=== PATIENT | female | born 1975 | race Caucasian/White ===

== ENCOUNTER 2017-03-28 11:02 | Observation (INO) | payer OTHER ==
[2017-03-26 15:27] LABS: HEMATOCRIT 39.3 % (36.0-48.0); HEMOGLOBIN 12.8 g/dL (12.0-16.0)
--- NOTE | ~2017-03-28 | OP ---
Record Of Operation [facility] [address] [place]. [address] NAME: DARIAN MURO : 79 STATUS : ADM [place] PAT#: [id number] AGE: 42 ADM/REG DATE : 03/28/17 MR#: [id number] REPORT SERV DATE: 03/28/17 DICTATED BY: VIPIN FUNG DATE: 03/28/17 REPORT STATUS : Draft TRANSCRIBED BY: MODL DATE: 03/28/17 DATE OF PROCEDURE: 03/28/2017 PREOPERATIVE DIAGNOSIS: C3-4 and C6-7 disk disease and stenosis with severe spinal cord compression, cervical radiculopathy, and cervical myelopathy. POSTOPERATIVE DIAGNOSIS: C3-4 and C6-7 disk disease and stenosis with severe spinal cord compression, cervical radiculopathy, and cervical myelopathy. PROCEDURES: 1. Anterior cervical diskectomy and fusion, C3-4 and C6-7. 2. Placement of Medtronic PEEK interbody spacer, C3-4 and C6-7. 3. Anterior cervical plate from Medtronic, C3-4 and C6-C7. 4. Allograft bone matrix. 5. Neuromonitoring. 6. Operative microscope. SURGEON: Vipin Fung DO. ANESTHESIA: General. ESTIMATED BLOOD LOSS: 10 mL. COMPLICATIONS: None. INDICATIONS: The patient is a pleasant 42-year-old with progressive signs of cervical radiculopathy with weakness in bilateral triceps as well as progressive cervical spondylotic myelopathy, failed conservative treatment. After discussion of risks and benefits and failed conservative treatment with progressive neurologic decline, the patient elected to proceed with surgical intervention. DESCRIPTION OF PROCEDURE: I identified the patient in the holding area. Consent was obtained. Went to the operating room. Underwent general anesthesia with endotracheal intubation. The patient was prepped and draped in the usual sterile fashion. Operative safety pause was performed, then we proceeded. The oblique incision was made over the left side of the neck, taken through the platysma. Dissection was carried out down to the anterior aspect of the spine. Longus colli were elevated at C3-4 and at C6-C7. [place] pins were placed at C4 and C6 and verified with lateral fluoroscopic image. An additional pin was placed at C7. Distraction was applied across the C6-C7 level. Operative microscope was brought in. A knife was used to perform an annulotomy. Free disk material removed with pituitary. Anterior osteophytes removed with a Kerrison. Posterior osteophytes and uncinate processes taken down with a regina bur. Foraminotomies performed with a Kerrison. Large amounts of sequestered disc fragment were found posterior to the posterior longitudinal ligament causing rather severe compression of the cord and exiting nerve roots. Bone spurs were also causing spinal cord compression that were removed. Endplates prepared with curettes, rasp, and a cutting bur. Irrigation performed. Trial spacer was implanted Record Of Operation [facility] [id number] [place]. [address] NAME: DARIAN MURO : 79 STATUS : ADM [place]on PAT#: [id number] AGE: 42 ADM/REG DATE : 03/28/17 MR#: [id number] REPORT SERV DATE: 03/28/17 DICTATED BY: VIPIN FUNG DATE: 03/28/17 REPORT STATUS : Draft TRANSCRIBED BY: MODL DATE: 03/28/17 followed by a Medtronic PEEK interbody spacer with allograft bone matrix. [place] pins were removed and anterior cervical plate from Medtronic was placed over the C6-C7 level. Screws were placed, final tightened. Locking mechanisms engaged. This process was repeated again at the C3-C4 level where again there was rather severe bony stenosis with severe spinal cord compression. The diskectomy placement of PEEK interbody spacer and plate were performed at C3-C4 as detailed above. Irrigation was performed. Hemostasis achieved. Subplatysmal drain placed. Final AP and lateral fluoroscopic images obtained. Layered closure performed. Sterile dressings applied. The patient awoke and extubated and taken to the recovery room in stable condition. OPERATIVE FINDINGS: Severe stenosis with spinal cord and nerve root compression. C3-4 and C6-C7. No sustained neuromonitoring alerts. SHAYE/MODL Vipin Fung DO / [id number] CC: DO SIDNEY Vargas
--- NOTE | ~2017-03-28 | PREOPHP ---
PreOp History and Physical [facility] [id number] [facility] [place]. [address] NAME: DARIAN MURO : 79 STATUS : REG [facility]#: [id number] AGE: 42 ADM/REG DATE : 03/28/17 MR#: [id number] REPORT SERV DATE: 03/28/17 DICTATED BY: VIPIN FUNG DATE: 03/28/17 REPORT STATUS : Draft TRANSCRIBED BY: LOUISE DATE: 03/28/17 CHIEF COMPLAINT: Neck pain, upper extremity pain, paresthesias, and weakness, and progressive signs of myelopathy including problems with balance and dropping objects for greater than six months. HISTORY OF PRESENT ILLNESS: The patient is a pleasant 42-year-old female with progressive signs of myelopathy and weakness from spinal cord compression, failed conservative treatment. After discussion of risks and benefits, and progressive neurologic decline, she elects to proceed with surgical intervention. REVIEW OF SYSTEMS: She denies chest pain, shortness of breath, and bowel or bladder changes. HOME MEDICATIONS: Clonazepam, gabapentin, tramadol. ALLERGIES: DENIED. FAMILY HISTORY: Noncontributory. PAST MEDICAL HISTORY: Denied. PHYSICAL EXAMINATION: VITAL SIGNS: Height 5 feet 3 inches, weight 208. GENERAL: The patient is healthy appearing, in no acute distress. PSYCH: Alert and oriented x3. Normal mood and affect. Gait is somewhat unsteady. VASCULAR: No extremity swelling. SPINE: Decreased cervical motion. HEART: Regular rate and rhythm. LUNGS: Clear to auscultation. ABDOMEN: Soft, nontender, nondistended. Good bowel sounds. BREASTS AND RECTAL: Both deferred. NEUROLOGIC: Strength is 4/5 for the bilateral triceps. There is positive 6 beats of clonus on the left ankle, 1 to 2 beats on the right ankle. She is hyperreflexic in bilateral patellas. She has a positive Padmini's bilaterally. IMAGING: I have reviewed the MRI scan of the cervical spine. She has C3-C4 and C6-C7 disk disease and stenosis with spinal cord compressions and signs of myelomalacia with congenital stenosis. ASSESSMENT: Progressive myelopathy and cervical radiculopathy, C3-C4 and C6-C7 disk disease and stenosis with myelomalacia, failed conservative treatment. PLAN: After discussion of risks and benefits, she elects to proceed with surgical intervention due to her progressive neurologic decline. PreOp History and Physical [address] [place] [address] NAME: DARIAN MURO : 79 STATUS : REG [facility]#: [id number] AGE: 42 ADM/REG DATE : 03/28/17 MR#: [id number] REPORT SERV DATE: 03/28/17 DICTATED BY: VIPIN FUNG DATE: 03/28/17 REPORT STATUS : Draft TRANSCRIBED BY: LOUISE DATE: 03/28/17 NAVEEN/LOUISE Vipin Fung DO / [id number] CC: DO Yulissa Vargas
--- NOTE | ~2017-03-28 | DS ---
Discharge Summary [facility] [address] [place]. [address] NAME: DARIAN MURO : 79 STATUS : DIS [place] PAT#: [id number] AGE: 42 ADM/REG DATE : 03/28/17 MR#: [id number] REPORT SERV DATE: 04/04/17 DICTATED BY: VIPIN FUNG DATE: 04/04/17 REPORT STATUS : Draft TRANSCRIBED BY: LOUISE DATE: 04/04/17 Data Collection from hospitalization DISCHARGE DIAGNOSES: 1. C3-4 and C6-7 disc disease and stenosis with severe spinal cord compression. 2. Cervical radiculopathy. 3. Cervical myelopathy. CONSULTATIONS: None. PROCEDURES PERFORMED: 1. Anterior cervical diskectomy and fusion C3-4, C6-7. 2. Placement of Medtronic PEEK interbody spacer, C3-4 and C6-7. 3. Anterior cervical plate from Medtronic, C3-4 and C6-7. 4. Allograft bone matrix. 5. Neuromonitoring. 6. Operative microscope on 03/28/2017. PATHOLOGY: Bone and soft tissue, cervical spine, fragments of bone cartilage and skeletal muscle. No evidence of infection or tumor. MEDICATIONS: Colace 100 mg twice daily, Neurontin 300 mg twice daily, multiple vitamin without minerals one daily, Percocet 5/325 one or two every 4 hours as needed, Flexeril 1 every 8 hours as needed for spasms. CONDITION AT DISCHARGE: Upon discharge, she did appear to be doing well and had no complaints. DISPOSITION: She had been discharged home to continue a regular diet with activity as discussed. She was to follow up with me in the office in two weeks. HOSPITAL COURSE: This 42-year-old female had progressive signs of myelopathy and weakness from spinal cord compression. She had failed conservative treatment. After discussion of the risks and benefits and progressive neurologic decline, she elected to proceed with surgical intervention. Upon admission to the hospital, she had been taken to the operating room where she did undergo the above procedure. She had tolerated this well and was transferred to the recovery room. On postop day #1, she did appear to be doing well and did have good pain control. She was felt to be neurologically stable, and her swallowing was stable. INVOICE CLERK was discontinued, and she had been placed on oral pain medications. Her preoperative pain was much better, and she had been evaluated by Physical Therapy. On postop day #2, she did continue to do well and had no new complaints. Her drain was removed. She did remain in stable condition and on postop day 3 as she continued to do well, she was then discharged with the above instructions. Information collected by: Butch Pickett. I submit the above information as my discharge summary. [address] Summary [address] [facility] [place] [address] NAME: DARIAN MURO : 79 STATUS : DIS [place] PAT#: [id number] AGE: 42 ADM/REG DATE : 03/28/17 MR#: [id number] REPORT SERV DATE: 04/04/17 DICTATED BY: VIPIN FUNG DATE: 04/04/17 REPORT STATUS : Draft TRANSCRIBED BY: LOUISE DATE: 04/04/17 NA/LOUISE Vipin Fung DO / [id number] CC: DO Yulissa Vargas
[~2017-03-28 11:02] MED LIST: KLONO5 PO; MULTIPLE VIT PO; NEUR300 PO; ULTRAM50 PO; [UNRECOGNIZED DRUG - OTHER] PO
[2017-03-29 04:36] LABS: POTASSIUM, SERUM 4.1 MMOL/L (3.5-5.3)
[2017-03-31] MEDS ORDERED: FLEX PO (11:26)
[2017-03-31] MEDS ORDERED: PCET PO (11:31)
== END 2017-03-31 13:13 | disposition home or self-care (01) ==
LOC: SDC 11:02 → SDC/OF 15:03 → 3SO 17:59
PROVIDERS: Orthopaedic Surgery
PROC: 0RG20A0 Fusion of 2 or more Cervical Vertebral Joints with Interbody Fusion Device, Anterior Approach, Anterior Column, Open Approach (ICD-10-PCS; principal; 2017-03-28 13:00)
PROC: 0RG2070 Fusion of 2 or more Cervical Vertebral Joints with Autologous Tissue Substitute, Anterior Approach, Anterior Column, Open Approach (ICD-10-PCS; 2017-03-28 13:00)
DX: M48.02 Spinal stenosis, cervical region (principal); M50.01 Cervical disc disorder with myelopathy, high cervical region; M50.023 Cervical disc disorder at C6-C7 level with myelopathy; M50.11 Cervical disc disorder with radiculopathy, high cervical region; M50.123 Cervical disc disorder at C6-C7 level with radiculopathy; M19.90 Unspecified osteoarthritis, unspecified site; F41.9 Anxiety disorder, unspecified; E66.9 Obesity, unspecified; Z68.39 Body mass index [BMI] 39.0-39.9, adult; Z87.891 Personal history of nicotine dependence; Z79.899 Other long term (current) drug therapy; Z98.51 Tubal ligation status; Z98.890 Other specified postprocedural states
CPT/HCPCS: 80051; 82962; 84703; 85014; 85018; 87641; 88304; 88311; 96374; 96376; 97116-GP; 97161-GP; A9270-GY; C1713; G0378; J0690; J1170; J2270; J2370; J2710; J3010